=== PATIENT | female | born 1990 | race Caucasian/White ===

== ENCOUNTER 2017-02-03 18:20 | Emergency (ER) | payer MEDICAID, OTHER ==
[~2017-02-03] VITALS: Ht 160 cm; Wt 58.2 kg
[~2017-02-03 18:20] MED LIST: IBUP400T22 PO; PT DENIES
[2017-02-03 18:58] VITALS: Ht 160 cm; Wt 58.2 kg
[2017-02-03] MEDS ORDERED: ACETAMINOPHEN 325 MG TAB PO ONE (19:30)
--- NOTE | 2017-02-03 20:08 | ERD ---
ER Documentation Chief Complaint Chief Complaint hit head on table yesterday, c/o headache/dizziness. denies ko HPI 26-year-old female complains of a generalized headache and dizziness after hitting her head against a table yesterday. She was at work and it was a wooden folding table with metal legs and the leg had slipped causing the table to fall forward hitting her forehead. She did not lose any consciousness, she does not experience any nausea or vomiting. She reports of a mild headache that is the both parietal regions, pressure-like. She describes lightheadedness but no blurry vision, no paresthesias, no weakness. She denies any other injuries. ROS All systems reviewed and are negative except as per history of present illness. Medications Home Meds Active Scripts Ibuprofen* (Motrin*) 400 Mg Tab, 400 MG PO Q6 for 7 Days, #30 TAB 0 Refills Prov:KATE OLSEN PA-C 09/04/15 Reported Medications [None] No Conflict Check 08/10/10 [Pt Denies] No Conflict Check 08/06/10 Allergies Allergies: Coded Allergies: No Known Allergies (Verified Allergy, Mild, 09/04/15) PMhx/Soc Medical and Surgical Hx: pt denies Medical Hx, pt denies Surgical Hx History of Surgery: No Anesthesia Reaction: No Hx Neurological Disorder: No Hx Respiratory Disorders: No Hx Cardiac Disorders: No Hx Psychiatric Problems: No Hx Miscellaneous Medical Probl: No Hx Alcohol Use: No Hx Substance Use: No Hx Tobacco Use: No Smoking Status: Never smoker Physical Exam Vitals Vital Signs Date Time Temp Pulse Resp B/P Pulse Ox O2 Delivery O2 Flow Rate FiO2 02/03/17 18:58 98.3 76 20 116/67 100 Physical Exam General: Well-developed, well-nourished. The patient appears in no acute distress. HEENT: Head is normocephalic, atraumatic. No scleral icterus. Pupils are equal , round, and reactive. Neck is supple, nontender. Lungs: Clear to auscultation. Normal air movement. Heart: Regular rate and rhythm. S1 and S2 are normal. No murmurs, gallops, or rubs. Abdomen: Soft, nontender, nondistended. Bowel sounds are normoactive. Extremities: No clubbing or cyanosis. Normal pulses. Moving extremities x 4. No weakness. My neuro exam. Skin: Normal turgor. No rash or lesions. Results 24 hrs Current Medications Medications (Trade) Dose Ordered Sig/Omid Route PRN Reason Start Time Stop Time Status Last Admin Dose Admin Acetaminophen (Tylenol Tab) 650 mg ONCE ONCE PO 02/03/17 19:30 02/03/17 19:31 DC 02/03/17 19:37 DIAGNOSTIC IMAGING REPORT Patient: MICHAELA MCCURDY : 1990 Age: 26 Sex: F MR #: [id number] DOS: 02/03/171954 Ordering MD: KYLEIGH JUAREZ PA-C Location: [facility] Room/Bed: PROCEDURE: CT Brain without contrast. CLINICAL INDICATION: Frontal head trauma 1 day ago. Headache. TECHNIQUE: A CT of the brain without contrast was performed utilizing axial sections from the skull base through the vertex. The patient was scanned without intravenous contrast enhancement. Sagittal and coronal reformatted images were obtained using the data from the axial images. Total exam DLP is 630.20 mGy-cm. CTDIvol is 43.95 mGy. One or more of the following dose reduction techniques were used: Automated exposure control, adjustment of the mA and/or kV according to patient size, use of iterative reconstruction technique. DICOM images are available. COMPARISON: None available FINDINGS: There is normal hdez-white matter differentiation. The ventricles and cisterns are normal. There is no intracranial hemorrhage or space-occupying lesion. There is no skull fracture or lytic lesion. IMPRESSION: 1. No intracranial hemorrhage. 2. Normal noncontrast CT scan of the brain. RPTAT: QQ .Dayron Campbell MD, Date Time Electronically viewed and signed by .Dayron Campbell MD, on 02/03/2017 21:12 .R/ CC: KYLEIGH JUAREZ PA-C Procedures/MDM 26-year-old female comes in with a generalized headache, dizziness after hitting her head yesterday. The patient's headache is most likely because she try to keep herself up the whole night without sleeping. CT scan of the head was ordered although I advised against a given the radiation risk. She was given Tylenol in the emergency department she seemed very anxious and requested CT head imaging. It was normal, no evidence of skull fracture or intracranial hemorrhage. She will be advised to take Tylenol ibuprofen at home. Return for any worsening symptoms including vomiting. Departure Diagnosis: Primary Impression: Acute head injury without loss of consciousness Condition: KYLEIGH Thomas PA-C Feb 03, 2017 20:08
--- NOTE | 2017-02-03 21:12 | RADRPT ---
PROCEDURE: CT Brain without contrast. CLINICAL INDICATION: Frontal head trauma 1 day ago. Headache. TECHNIQUE: A CT of the brain without contrast was performed utilizing axial sections from the skul l base through the vertex. The patient was scanned without intravenous contrast enhancement. Sagitta l and coronal reformatted images were obtained using the data from the axial images. Total exam DLP is 630.20 mGy-cm. CTDIvol is 43.95 mGy. One or more of the following dose reduction techniques we re used: Automated exposure control, adjustment of the mA and/or kV according to patient size, use o f iterative reconstruction technique. DICOM images are available. COMPARISON: None available FINDINGS: There is normal hdez-white matter differentiation. The ventricles and cisterns are normal. There is no intracranial hemorrhage or space-occupying lesion. There is no skull fracture or lytic lesion. IMPRESSION: 1. No intracranial hemorrhage. 2. Normal noncontrast CT scan of the brain. RPTAT: QQ .Dayron Campbell MD, MD Date Time Electronically viewed and signed by .Dayron Campbell MD, on 02/03/2017 21:12 .R/
== END 2017-02-03 21:26 | disposition home or self-care (01) ==
LOC: FTE 18:20
DX: S09.90XA Unspecified injury of head, initial encounter (principal); R51 Headache; W22.8XXA Striking against or struck by other objects, initial encounter; Y92.9 Unspecified place or not applicable
CPT/HCPCS: 70450; Z7502; Z7610

== ENCOUNTER 2018-02-21 11:49 | Outpatient (CLI) | END 2018-02-21 15:41 | disposition home or self-care (01) ==